=== PATIENT | male | born 1965 | race Caucasian/White ===

== ENCOUNTER 2016-08-29 07:56 | Emergency (ER) | payer OTHER ==
[~2016-08-29] VITALS: Ht 172.7 cm; Wt 125.0 kg
[~2016-08-29 07:56] MED LIST: BENTYL2 MG/ML PO; PROTONIX40 M1 PO; ZESTRIL,PRINIVI20 MG PO
[2016-08-29 09:17] LABS: EOSINOPHIL (%) 0.5 % (0-5); HEMATOCRIT 42.8 % (38.0-50.0); IMMATURE GRANULOCYTE (%) 0.5 % (0.0-0.7); INSTRUMENT ABS NEUTROPHIL CT 3.4 K/uL; LYMPHOCYTE COUNT 1.3 K/uL (1.0-2.8); MCH 31.8 PG (29.0-34.0); MCV 90.9 FL (86-99); MEAN PLAT.VOLUME 9.5 uM^3 (9.0-12.4); MONOCYTE (%) 13.6 % (3-12); MONOCYTE COUNT 0.8 K/uL (0-0.8); NEUTROPHIL (%) 61.4 % (45-76); NEUTROPHIL COUNT 3.4 K/uL (1.8-6.4); PLATELET COUNT 209 K/uL (156-360); RBC DIS.WIDTH-CV 12.7 % (11.8-14.6); RED BLOOD COUNT 4.71 M/uL (4.00-5.50); WHITE BLOOD COUNT 5.5 K/uL (4.1-10.2)
[2016-08-29 09:31] LABS: CHLORIDE 103 mEq/L (99-109); POTASSIUM 3.6 mEq/L (3.7-5.4); SODIUM 139 mEq/L (136-147)
[2016-08-29 09:33] LABS: GLUCOSE 125 mg/dL (70-99)
[2016-08-29 09:35] LABS: ANION GAP 13 MEQ/L (2-14)
[2016-08-29 09:37] LABS: GFR ESTIMATE (CALCULATED) > 59 mL/min/
[2016-08-29 09:38] LABS: UREA NITROGEN (BUN) 13 mg/dL (9-23)
[2016-08-29 09:41] LABS: TROP-I INTERPRETATION NEGATIVE; TROPONIN-I < 0.01 ng/mL (0.0-0.30)
[2016-08-29] MEDS ORDERED: ZITHROMAX Z-PA250 MG PO (11:42)
[2016-08-29] MEDS ORDERED: PREDNISONE50 MG PO (11:42)
[2016-08-29] MEDS ORDERED: PROAIR HFA8.5 GM IH (11:42)
[2016-08-29 11:55] VITALS: BP 133/73
== END 2016-08-29 12:02 | disposition home or self-care (01) ==
LOC: EME 07:56
PROVIDERS: Emergency Medicine
DX: J20.9 Acute bronchitis, unspecified (principal); J45.909 Unspecified asthma, uncomplicated
CPT/HCPCS: 71010; 80048; 84484; 85025; 93005; 94640; 94640 76; 99281; 99285